=== PATIENT | female | born 1985 | race Caucasian/White ===

== ENCOUNTER 2022-03-18 16:07 | Emergency (ER) | payer OTHER ==
[~2022-03-18] VITALS: Ht 162.6 cm; Wt 90.0 kg
--- NOTE | 2022-03-18 16:28 | PHYS DOC ---
General Adult HPI: HPI: Patient is a 36-year-old female who presents to the emergency department today for palpitations. Patient reports that she woke up this morning around 11:00 and felt shaky. She states that her got home and he asked her what was wrong and he told her to check her heart rate on her apple watch and it was 150 bpm. Patient has a history of tachycardia and she was placed on 30 mg of nicardipine 3 weeks ago. This was prescribed by her primary care provider at [facility]. Patient reports increased stress and anxiety. She reports that her is in the and [place]. Patient denies any chest pain, nausea, vomiting. She does report that she feels short of breath. She is also taking Synthroid and Effexor and states that they recently increased her Synthroid dose. Patient denies any supplements or [id number] medication use. She reports drinking half a cup of coffee today. Patient reports that she has been doing vagal maneuvers prior to ER arrival without any relief. Review of Systems: Review of Systems: Respiratory: See HPI Cardiovascular: See HPI GI: See HPI Neurologic: See HPI Psychiatric: see hpi Physical Exam: PE: Constitutional: Well developed, well nourished, no acute distress, non-toxic appearance. [] HENT: Normocephalic, atraumatic, bilateral external ears normal, oropharynx moist, no oral exudates, nose normal. [] Eyes: PERRL, EOMI, conjunctiva normal, no discharge. [] Neck: Normal range of motion, no tenderness, supple, no stridor. [] Cardiovascular:Heart rate tachycardic and regular rhythm, no murmur [] Lungs & Thorax: Bilateral breath sounds clear to auscultation [] Abdomen: Bowel sounds normal, soft, no tenderness, no masses, no pulsatile masses. [] Skin: Warm, dry, no erythema, no rash. [] Back: No tenderness, normal range of motion Extremities: No tenderness, no cyanosis, no clubbing, ROM intact, no edema. [] Neurologic: Alert and oriented X 3, normal motor function, normal sensory function, no focal deficits noted. [] Psychologic: Affect normal, judgement normal, mood normal. [] Current Patient Data: Labs: Laboratory Tests Test 03/18/22 16:28 White Blood Count 10.3 x10^3/uL Red Blood Count 4.44 x10^6/uL Hemoglobin 14.8 g/dL Hematocrit 42.9 % Mean Corpuscular Volume 97 fL Mean Corpuscular Hemoglobin 33 pg Mean Corpuscular Hemoglobin Concent 34 g/dL Red Cell Distribution Width 12.9 % Platelet Count 272 x10^3/uL Neutrophils (%) (Auto) 71 % Lymphocytes (%) (Auto) 21 % Monocytes (%) (Auto) 8 % Eosinophils (%) (Auto) 0 % Basophils (%) (Auto) 0 % Neutrophils # (Auto) 7.4 x10^3uL Lymphocytes # (Auto) 2.1 x10^3/uL Monocytes # (Auto) 0.8 x10^3/uL Eosinophils # (Auto) 0.0 x10^3/uL Basophils # (Auto) 0.0 x10^3/uL Sodium Level 138 mmol/L Potassium Level 3.8 mmol/L Chloride Level 104 mmol/L Carbon Dioxide Level 24 mmol/L Anion Gap 10 Blood Urea Nitrogen 16 mg/dL Creatinine 0.9 mg/dL Estimated GFR (Cockcroft-Gault) 70.8 BUN/Creatinine Ratio 18 Glucose Level 142 mg/dL Calcium Level 8.6 mg/dL Total Bilirubin 0.3 mg/dL Aspartate Amino Transf (AST/SGOT) 54 U/L Alanine Aminotransferase (ALT/SGPT) 53 U/L Alkaline Phosphatase 122 U/L Troponin I High Sensitivity 6 ng/L Total Protein 6.9 g/dL Albumin 3.7 g/dL Albumin/Globulin Ratio 1.2 Current Medications Medications (Trade) Dose Ordered Sig/Lissy Route PRN Reason Start Time Stop Time Status Last Admin Dose Admin Sodium Chloride 1,000 ml @ 1,000 mls/hr Q1H IV 03/18/22 16:30 03/18/22 17:29 DC 03/18/22 16:36 Lorazepam (Ativan Inj) 1 mg 1X ONCE IVP 03/18/22 16:45 03/18/22 16:46 DC 03/18/22 16:43 EKG: EKG: EKG performed by ER staff at 1618 shows sinus tachycardia with a heart rate of 146, no STEMI read by Dr. Clarke [] Radiology/Procedures: Radiology/Procedures: [] Impressions: ROCEDURE: PORTABLE CHEST 1V EXAMINATION: Chest radiograph. VIEWS: 1 COMPARISON: None INDICATION:36 years, Female, palpitations. FINDINGS: Normal cardiomediastinal silhouette. Bilateral perihilar and basilar patchy airspace opacities. No pleural effusion or pneumothorax. No acute osseous proce ss. IMPRESSION: Bilateral perihilar and basilar patchy airspace opacities. Differential includes atelectatic changes versus atypical pneumonia. Electronically signed by: Tuan Del Castillo MD (03/18/2022 5:21 PM) [facility] DICTATED AND SIGNED BY: TUAN DEL CASTILLO MD DATE: 03/18/221719 CC: VERONIKA TAYLOR APRN; SALVATORE DAVIES APRN ~ Heart Score: C/O Chest Pain: No Risk Factors: Risk Factors: DM, Current or recent (<one month) smoker, HTN, HLP, family history of CAD, obesity. Risk Scores: Score 0 - 3: 2.5% MACE over next 6 weeks - Discharge Home Score 4 - 6: 20.3% MACE over next 6 weeks - Admit for Clinical Observation Score 7 - 10: 72.7% MACE over next 6 weeks - Early Invasive Strategies Course & Med Decision Making: Course & Med Decision Making Pertinent Labs and Imaging studies reviewed. (See chart for details) [] Patient presents to the emergency department for palpitations with shortness of breath. Patient has a history of tachycardia and takes 30 mg of Cardene. Patient's Synthroid dose was also increased. Patient attempted vagal maneuvers in the ER and this was unsuccessful. Work-up in the ER cystoscopy blood work including troponin, EKG and chest x-ray. Patient treated with anxiety medication as she is visibly anxious and reports increased stress as well as IV fluids for tachycardia. Following treatment in the emergency department with IV fluids and Ativan, patient's heart rate has improved to 111 bpm. Patient no longer is experiencing palpitations but reports she "feels loopy" after the Ativan. Patient reports that her baseline heart rate is typically 110 to 130 bpm. Patient's blood work was unremarkable, she did not have an elevated troponin. Chest x-ray shows bilateral perihilar and bibasilar traits which the radiologist read as atypical pneumonia versus atelectasis. Patient will be treated with an antibiotic. She is advised to continue to monitor her heart rate and stay hydrated. She is given referral information for painter interior finish. I discussed with patient all find ings and diagnostic testing as well as the need to follow-up with PCP for further evaluation and treatment or return to the ER if any new or worsening symptoms. Strict return precautions were also discussed at length. Patient voiced understanding and agreement with the plan. Patient is hemodynamically stable at the time of disposition. Dragon Disclaimer: Dragon Disclaimer: This electronic medical record was generated, in whole or in part, using a voice recognition dictation system. Departure Departure: Impression: Primary Impression: Palpitations Additional Impression: Tachycardia Disposition: HOME / SELF CARE / HOMELESS Condition: GOOD Referrals: VERONIKA TAYLOR APRN (PCP) JUDITH CARDONA MD Patient Instructions: Palpitations, Pneumonia, Adult Additional Instructions: You are seen in the emergency department today for palpitations. You were noted to have tachycardia which has improved after treatment with fluids and anxiety medication. Please continue to monitor your heart rate at home. Avoid any stimulants. Increase your fluids as dehydration is a common cause of tachycardia. Follow-up with your primary care provider tomorrow regarding your ER visit. I have attached a painter interior finish onto your discharge paperwork and I would advise you to call them tomorrow to set up a follow-up appointment. Continue taking your medications as directed unless told otherwise by your primary care provider. Return to the emergency department if you develop palpitations, tachycardia, chest pain, shortness of breath, dizziness, syncope, intractable nausea or vomiting. Scripts Azithromycin (AZITHROMYCIN TABLET) 250 Mg Tablet 1 PKG PO UD for pneumonia for 5 Days, #6 TAB 0 Refills 2 the first day followed by 1 for days 2-5 Prov: SALVATORE DAVISE APRN 03/18/22 SALVATORE DAVIES APRN Mar 18, 2022 16:28
[2022-03-18] MEDS: IV NORMAL SALINE 1,000ML 1,000 ML IV SCH (16:36)
[2022-03-18 16:47] LABS: BASO % 0 % (0-3); EOS % 0 % (0-3); HEMATOCRIT 42.9 % (36.0-47.0); HEMOGLOBIN 14.8 g/dL (12.0-15.5); LYMPH # 2.1 x10^3/uL (1.0-4.8); LYMPH % 21 % (24-48); MEAN CORPUSCULAR HEMOGLOBIN 33 pg (25-35); MEAN CORPUSCULAR HGB CONC 34 g/dL (31-37); MEAN CORPUSCULAR VOLUME 97 fL (79-100); MONO # 0.8 x10^3/uL (0.0-1.1); MONO % 8 % (0-9); NEUT # 7.4 x10^3uL (1.8-7.7); NEUT % 71 % (31-73); PLATELET COUNT 272 x10^3/uL (140-400); RED BLOOD COUNT 4.44 x10^6/uL (3.50-5.40); RED CELL DISTRIBUTION WIDTH 12.9 % (11.5-14.5); WHITE BLOOD COUNT 10.3 x10^3/uL (4.0-11.0)
[2022-03-18 17:10] LABS: CALCIUM 8.6 mg/dL (8.5-10.1); CREATININE 0.9 mg/dL (0.6-1.0); GFR 70.8; POTASSIUM 3.8 mmol/L (3.5-5.1)
[2022-03-18 17:15] LABS: ALBUMIN 3.7 g/dL (3.4-5.0); ALBUMIN/GLOBULIN RATIO 1.2 (1.0-1.7); TOTAL BILIRUBIN 0.3 mg/dL (0.2-1.0); TOTAL PROTEIN 6.9 g/dL (6.4-8.2)
--- NOTE | 2022-03-18 17:24 | RAD ---
EXAMINATION: Chest radiograph. VIEWS: 1 COMPARISON: None INDICATION:36 years, Female, palpitations. FINDINGS: Normal cardiomediastinal silhouette. Bilateral perihilar and basilar patchy airspace opacities. No pl eural effusion or pneumothorax. No acute osseous process. IMPRESSION: Bilateral perihilar and basilar patchy airspace opacities. Differential includes atelectatic changes versus atypical pneumonia. Electronically signed by: Nelly Del Castillo MD (03/18/2022 5:21 PM) [facility]
[2022-03-18] MEDS ORDERED: AZIT250T6 PO (17:54)
[2022-03-18 18:18] LABS: BACTERIA,URINE 0 /HPF (0-FEW); CLARITY,URINE CLEAR; COLOR,URINE YELLOW; GLUCOSE,URINE NEG (NEG); NITRITE,URINE NEG (NEG); RBC,URINE 0 /HPF (0-2); SQUAMOUS EPITHELIAL CELL,UR OCC /LPF; UROBILINOGEN,URINE 0.2 mg/dL (0.2 mg/dL); WBC,URINE 0 /HPF (0-4)
[2022-03-18 18:42] VITALS: BP 138/96
--- NOTE | 2022-03-18 21:56 | EKG ---
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
== END 2022-03-18 18:50 | disposition home or self-care (01) ==
LOC: ER 16:07
DX: R00.2 Palpitations (principal); R00.0 Tachycardia, unspecified; F41.9 Anxiety disorder, unspecified; F43.9 Reaction to severe stress, unspecified
CPT/HCPCS: 36415; 71045; 80053; 81001; 84484; 85025; 93005; 96361; 96374; 99285; J2060; J7030